=== PATIENT | female | born 2000 | race Caucasian/White ===

== ENCOUNTER 2021-10-21 14:24 | Emergency (ER) | payer OTHER ==
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
== END 2021-10-21 18:55 | disposition short-term general hospital (02) ==
LOC: ED 14:24 → EDBD 14:25 → ED 14:25
DX: S12.200A Unspecified displaced fracture of third cervical vertebra, initial encounter for closed fracture (principal); S22.42XA Multiple fractures of ribs, left side, initial encounter for closed fracture; S00.83XA Contusion of other part of head, initial encounter; Z20.822 Contact with and (suspected) exposure to COVID-19; V89.2XXA Person injured in unspecified motor-vehicle accident, traffic, initial encounter
CPT/HCPCS: 36415; 51702; 70450; 70486; 71045; 71260; 72125; 73560; 73590; 74177; 80053; 82150; 82553; 83605; 83690; 84703; 85025; 86850; 86900; 86901; 99285-25; C9803; G0480; J1170; J2270; J2405; U0003